=== PATIENT | male | born 1990 | race Caucasian/White ===

== ENCOUNTER 2017-05-10 21:06 | Emergency (ER) | payer BC, OTHER ==
[2017-05-10 23:56] LABS: BASO % 0.4 % (0.0-1.0); EOS % 0.2 % (0.0-3.0); HEMATOCRIT 41.3 % (42.0-52.0); HEMOGLOBIN 14.8 g/dl (14.0-18.0); IMMATURE GRANULOCYTE % 0.2 % (0-0); LYMPH # 0.8 10^3/uL (1.5-6.5); LYMPH % 8.4 % (24.0-44.0); MEAN CORPUSCULAR HEMOGLOBIN 29.8 pg (27.0-33.0); MEAN CORPUSCULAR HGB CONC 35.8 g/dl (32.0-36.5); MEAN CORPUSCULAR VOLUME 83.1 fl (80.0-96.0); MONO # 0.9 10^3/uL (0.0-0.8); MONO % 8.8 % (0.0-5.0); NEUTROPHILS # 7.9 10^3/uL (1.8-7.7); PLATELET COUNT, AUTOMATED 188 10^3/uL (150-450); RED BLOOD COUNT 4.97 10^6/uL (4.30-6.10); RED CELL DISTRIBUTION WIDTH 11.9 % (11.5-14.5); WHITE BLOOD COUNT 9.7 10^3/uL (4.0-10.0)
[2017-05-11 00:54] LABS: LACTIC ACID SEPSIS PROTOCOL 1.5 MMOL/L (0.4-2.0)
[2017-05-11 01:05] LABS: ALBUMIN/GLOBULIN RATIO 1.25 (1.00-1.93); ALKALINE PHOSPHATASE 100 U/L (45-117); ALT/SGPT 38 U/L (12-78); ANION GAP 10 MEQ/L (8-16); AST/SGOT 29 U/L (7-37); BILIRUBIN,DIRECT 0.2 MG/DL (0.0-0.2); BILIRUBIN,TOTAL 0.6 MG/DL (0.2-1.0); BLOOD UREA NITROGEN 13 MG/DL (7-18); CALCIUM LEVEL 8.5 MG/DL (8.5-10.1); CARBON DIOXIDE LEVEL 26 MEQ/L (21-32); CHLORIDE LEVEL 105 MEQ/L (98-107); CPK CREATINE PHOSPHOKINASE 856 U/L (39-308); CREATININE FOR GFR 0.98 MG/DL (0.70-1.30); GLOMERULAR FILTRATION RATE > 60.0 (>60); GLUCOSE, FASTING 113 MG/DL (70-100); LIPASE 106 U/L (73-393); MB/CK RELATIVE INDEX 0.11 (< OR =4); POTASSIUM SERUM 3.6 MEQ/L (3.5-5.1); SODIUM LEVEL 141 MEQ/L (136-145); TOTAL PROTEIN 7.2 GM/DL (6.4-8.2); TROPONIN I < 0.02 NG/ML (< 0.10)
[2017-05-11] MEDS: ACETAMINOPHEN TAB 650MG DOSE (2X325MG) PO (01:46)
[2017-05-11 02:08] LABS: CK-MB VALUE MASS 1.3 NG/ML (0.0-3.6); CPK CREATINE PHOSPHOKINASE 852 U/L (39-308); MB/CK RELATIVE INDEX 0.15 (< OR =4); TROPONIN I < 0.02 NG/ML (< 0.10)
== END 2017-05-11 03:02 | disposition home or self-care (01) ==
LOC: M ED 21:06
DX: R07.9 Chest pain, unspecified (principal); R06.02 Shortness of breath; R11.2 Nausea with vomiting, unspecified; R05 Cough; R00.2 Palpitations; K44.9 Diaphragmatic hernia without obstruction or gangrene; Z82.49 Family history of ischemic heart disease and other diseases of the circulatory system
CPT/HCPCS: 71046

== ENCOUNTER → 2018-10-07 | Outpatient (CLI) | payer BC, OTHER ==
[~2018-10-07] MED LIST: FLUTISP; OSEL75CA2 PO; PROAAER10 INH
--- NOTE | 2018-10-09 09:44 | REP ---
MRI PELVIS/SACROILIAC JOINTS WITHOUT CONTRAST: Multiple sequences were obtained in the axial, coronal and sagittal planes. There is very mild marrow edema in the right iliac bone inferiorly along the right sacroiliac joint. On the left there is not significant marrow edema along the sacroiliac joint. Remaining visualized osseous structures demonstrate normal bone marrow signal. There is no occult fracture. Coccyx is unremarkable. Visualized intrapelvic structures appear unremarkable. IMPRESSION: Very mild bone marrow edema in a subchondral location in the right iliac bone along the inferior aspect of the right sacroiliac joint. No other significant abnormalities. Electronically Signed by Emigdio Pino MD 10/10/2018 09:40 A
== END ==
LOC: M RAD 10:11
PROVIDERS: ATTEND Nurse Practitioner Family
DX: M46.1 Sacroiliitis, not elsewhere classified (principal)

== ENCOUNTER → 2020-03-20 | Outpatient (REF) | payer OTHER | LOC: M LAB REF 12:35 | PROVIDERS: ATTEND Physician Assistant | DX: Z20.828 Contact with and (suspected) exposure to other viral communicable diseases (principal) ==

== ENCOUNTER → 2020-08-22 | Outpatient (CLI) | payer BC, OTHER ==
--- NOTE | 2020-08-22 19:25 | REP ---
INDICATION: OTH INTER DISC DEG R/O HNP STENOSIS. COMPARISON: Comparison MRI study of the lumbar spine is from January 14, 2015.. TECHNIQUE: Sagittal and axial T1 and T2-weighted scans are acquired in the usual fashion with and without fat saturation. Sequences include spin echo, turbo spin-echo, and STIR imaging sequences. FINDINGS: Lumbar vertebral body heights are preserved. And there is some straightening. Alignment is normal. No bony destructive lesion is seen. There is a small hemangioma in the L1 vertebral body unchanged. No extra vertebral abnormality is observed. Axial and sagittal images taken at L1-2 show no evidence of disc protrusion, central canal stenosis, or foraminal narrowing. At L2-3, the posterior disc margin bulges subtly. No spinal stenosis is seen. No foraminal narrowing is seen. The L3-4 vertebral disc is preserved in height and signal intensity. Minimal diffuse disc bulging is again noted. No focal disc protrusion is seen. No spinal stenosis or foraminal narrowing is seen. At L4-L5, there is minimal diffuse disc bulging again noted unchanged. No foraminal narrowing or spinal stenosis is seen. At L5-S1, there is a right lateral focal disc protrusion with an annulus tear. This is seen adjacent to and may be displacing the extra dural segment of the right 5th lumbar root. The annulus tear appears to be a new finding. There is facet hypertrophy bilaterally at L5-S1 mild in degree. IMPRESSION: There is a right lateral disc bulge with a annulus tear at the L5-S1 level. Mild bilateral osteoarthritic facet disease is noted at L5-S1 as well. Minimal bulging of the other lumbar discs as above. <Electronically signed by Rodolfo Barboza > 08/22/201920
== END ==
LOC: M RAD 16:46
PROVIDERS: ATTEND Physician Assistant
DX: M51.27 Other intervertebral disc displacement, lumbosacral region (principal); M51.36 Other intervertebral disc degeneration, lumbar region; M47.817 Spondylosis without myelopathy or radiculopathy, lumbosacral region

== ENCOUNTER → 2020-10-13 | Outpatient (CLI) | payer BC, OTHER ==
[2020-10-13 12:04] LABS: COLLAGEN EPINEPHRINE 83 SECONDS (74-162)
[2020-10-13 12:06] LABS: INR 0.96
[2020-10-13 12:07] LABS: PARTIAL THROMBOPLASTIN TIME 27.2 SECONDS (24.2-38.5)
== END ==
LOC: M LAB 11:29
PROVIDERS: ATTEND Physical Medicine & Rehabilitation
DX: M51.26 Other intervertebral disc displacement, lumbar region (principal)

== ENCOUNTER → 2021-08-11 | Outpatient (REF) | payer BC, OTHER | LOC: M LAB REF 09:43 | PROVIDERS: ATTEND Internal Medicine | DX: Z80.3 Family history of malignant neoplasm of breast (principal) ==

== ENCOUNTER → 2022-09-03 | Outpatient (CLI) | payer BC, OTHER ==
[~2022-09-03] MED LIST changes: +FLUT50SP17; -FLUTISP
== END ==
LOC: M WHC 07:33
PROVIDERS: ATTEND Physician Assistant Medical
DX: R94.5 Abnormal results of liver function studies (principal)